=== PATIENT | female | born 1990 | race Caucasian/White ===

== ENCOUNTER 2024-01-03 12:05 | Emergency (ER) | payer OTHER ==
[2024-01-03 12:45] VITALS: RESP 18; TEMP 98
--- NOTE | 2024-01-03 12:49 | ED ---
Abdominal Pain HPI - General Source: patient, RN notes reviewed Mode of arrival: ambulatory Limitations: no limitations - History of Present Illness MD Complaint: abdominal pain <Emily Penny - Last Filed: 01/03/24 12:47> <Joaquin Rivera - Last Filed: 01/03/24 19:21> - General Chief Complaint: Abdominal Pain Stated Complaint: abd pain Time Seen by Provider: 01/03/24 12:36 - History of Present Illness Initial Comments: Quick Note: This is a 33-year-old female who presents to the emergency department for abdominal pain. States that this is in the lower abdomen and not worse on any particular side. Symptoms started while at work today after lifting something up. Denies any nausea or vomiting. Reports a history of ruptured ovarian cysts and states that symptoms feel the same. She has minor vaginal bleeding. (Emily Penny) Dictation was produced using [employer] dictation software. please excuse any grammatical, word or spelling errors. Chief Complaint: 33-year-old female with history of ovarian cyst issues presents to the emergency department for pelvic pain History of Present Illness: Patient 33-year-old female presents emergency department pelvic pain. She has what she reports is extensive pelvic history after having had issues with oral ovaries requiring surgical intervention. Patient states that today she started to have lower abdominal pain. She states that there was some bleeding noted vaginally. Patient denies she is not sexually active. Denies any fever, chills or night sweats. Patient states the pain is midline suprapubic very low. Denies any other surgeries. The ROS documented in this emergency department record has been reviewed and confirmed by me. Those systems with pertinent positive or negative responses have been documented in the HPI. All other systems are other negative and/or noncontributory. (Joaquin Rivera) - Related Data Home Medications Medication Instructions Recorded Confirmed No Known Home Medications 01/03/24 01/03/24 Allergies Allergy/AdvReac Type Severity Reaction Status Date / Time No Known Allergies Allergy Verified 01/03/24 18:16 Review of Systems ROS Other: All systems not noted in ROS Statement are negative. <Emily Penny - Last Filed: 01/03/24 12:47> ROS Other: All systems not noted in ROS Statement are negative. <Joaquin Rivera - Last Filed: 01/03/24 19:21> ROS Statement: Those systems with pertinent positive or pertinent negative responses have been documented in the HPI. Past Medical History Past Medical History: No Reported History History of Any Multi-Drug Resistant Organisms: None Reported Additional Past Surgical History / Comment(s): ovarian cyst removal. Past Psychological History: No Psychological Hx Reported Smoking Status: Vaper Past Alcohol Use History: Rare Past Drug Use History: None Reported <Emily Penny - Last Filed: 01/03/24 12:47> General Exam Limitations: no limitations <Emily Penny - Last Filed: 01/03/24 12:47> <Joaquin Rivera - Last Filed: 01/03/24 19:21> - General Exam Comments Initial Comments: Visual Physical Exam Vital signs reviewed General: Well-appearing, nontoxic, no acute distress. Head: Normocephalic, atraumatic Eyes: PERRLA, EOMI ENT: Airway patent Chest: Nonlabored breathing Skin: No visual rash, normal skin tone Neuro: Alert and oriented 3 Musculoskeletal: No gross abnormalities (Emily Penny) PHYSICAL EXAM: General Impression: Alert and oriented x3, not in acute distress HEENT: Normocephalic atraumatic, extra-ocular movements intact, pupils equal and reactive to light bilaterally, mucous membranes moist. Cardiovascular: Heart regular rate and rhythm Chest: Able to complete full sentences, no retractions, no tachypnea Abdomen: abdomen soft, n tenderness to the suprapubic space, no palpatory tenderness to McBurney's point, no left lower quadrant tenderness r, non- distended, no organomegaly Musculoskeletal: Pulses present and equal in all extremities, no peripheral edema Motor: no focal deficits noted Neurological: CN II-XII grossly intact, no focal motor or sensory deficits noted Skin: Intact with no visualized rashes Psych: Normal affect and mood (Joaquin Rivera) Course Vital Signs 01/03/24 01/03/24 12:13 18:15 Temperature 98 F Pulse Rate 88 72 Respiratory 18 18 Rate Blood Pressure 116/74 111/76 O2 Sat by Pulse 98 98 Oximetry Medical Decision Making <Emily Penny - Last Filed: 04/26/24 12:47> - Lab Data Result diagrams: 01/03/24 14:05 01/03/24 14:05 <NicoleJoaquin D - Last Filed: 01/03/24 19:21> - Medical Decision Making I performed the QuickNote portion of this chart. Signed Emily Penny PA-C. (Emily Penny) Was pt. sent in by a medical professional or institution ([facility]URA Aguilar, [facility], urgent care, hospital, or [place] health care facility...) When possible be specific @ -No Did you speak to anyone other than the patient for history (EMS, parent, family, police, friend...)? What history was obtained from this source @ -No Did you review nursing and triage notes (agree or disagree)? Why? @ -I reviewed and agree with nursing and triage notes Were old charts reviewed (outside hosp., previous admission, EMS record, old EKG, old radiological studies, urgent care reports/EKG's, [place] health care facility records)? Report findings @ -No old charts were reviewed Differential Diagnosis (chest pain, altered mental status, abdominal pain women, abdominal pain men, vaginal bleeding, musculoskeletal, weakness, fever, dyspnea, syncope, headache, dizziness, GI bleed, back pain, seizure, CVA, palpatations, mental health)? @ -Not applicable EKG interpreted by me (3pts min.). @ -None done X-rays interpreted by me (1pt min.). @ -None done CT interpreted by me (1pt min.). @ -None done U/S interpreted by me (1pt. min.). @ -Ultrasound the pelvis shows good flow to bilateral ovaries What testing was considered but not performed or refused? (CT, X-rays, U/S, labs)? Why? @ -None What meds were considered but not given or refused? Why? @ -None Did you discuss the management of the patient with other professionals (professionals i.e. LAURA Aguilar, [facility], lab, RT, psych nurse, high school social science teacher, school age program teacher, teacher, disability liaison officer, corrections caseworker)? Give summary @ -No Was smoking cessation discussed for >3mins.? @ -No Was critical care preformed (if so, how long)? @ -No Were there social determinants of health that impacted care today? How? (Home lessness, low income, unemployed, alcoholism, drug addiction, transportation, low edu. Level, literacy, decrease access to med. care, intermediate, rehab)? @ -No Was there de-escalation of care discussed even if they declined (Discuss DNR or withdrawal of care, Hospice)? DNR status @ -No What co-morbidities impacted this encounter? (DM, HTN, Smoking, COPD, CAD, Cancer, CVA, ARF, Chemo, Hep., AIDS, mental health diagnosis, sleep apnea, morbid obesity)? @ -None Was patient admitted / discharged? Hospital course, mention meds given and route, prescriptions, significant lab abnormalities, going to OR and other pertinent info. @ -33-year-old female presents emergency department for pelvic pain. Vital signs upon arrival are within acceptable limits. Laboratory evaluation obtained. No leukocytosis. CBC metabolic panel is unremarkable. Urinalysis is negative. Transvaginal ultrasound shows fibroid otherwise no acute processes. Patient given analgesics discharge. Patient had just moved from [place]. Patient given referral to gynecology along with some of the local primary care physicians. Undiagnosed new problem with uncertain prognosis? @ -No Drug Therapy requiring intensive monitoring for toxicity (Heparin, Nitro, Insulin, Cardizem)? @ -No Were any procedures done? @ -No Diagnosis/symptom? Acute, or Chronic, or Acute on Chronic? Uncomplicated (without systemic symptoms) or Complicated (systemic symptoms)? @ -Pelvic pain Side effects of treatment? @ -No Exacerbation, Progression, or Severe Exacerbation? @ -No Poses a threat to life or bodily function? How? (Chest pain, [place], [place], pneumonia, PE, COPD, DKA, ARF, appy, cholecystitis, CVA, Diverticulitis, Homicidal, Suicidal, threat to staff... and all critical care pts) @ -No (Joaquin Rivera) - Lab Data Lab Results 01/03/24 01/03/24 01/03/24 Range/Units 12:16 14:05 14:05 WBC 6.1 (3.8-10.6) k/uL RBC 4.46 (3.80-5.40) m/uL Hgb 14.3 (11.4-16.0) gm/dL Hct 43.5 (34.0-46.0) % MCV 97.4 (80.0-100.0) fL MCH 32.0 (25.0-35.0) pg MCHC 32.9 (31.0-37.0) g/dL RDW 12.1 (11.5-15.5) % Plt Count 243 (150-450) k/uL MPV 7.2 Neutrophils % 59 % Lymphocytes % 33 % Monocytes % 5 % Eosinophils % 1 % Basophils % 1 % Neutrophils # 3.6 (1.3-7.7) k/uL Lymphocytes # 2.0 (1.0-4.8) k/uL Monocytes # 0.3 (0-1.0) k/uL Eosinophils # 0.1 (0-0.7) k/uL Basophils # 0.0 (0-0.2) k/uL Sodium 137 (137-145) mmol/L Potassium 3.9 (3.5-5.1) mmol/L Chloride 107 (98-107) mmol/L Carbon Dioxide 26 (22-30) mmol/L Anion Gap 4 mmol/L BUN 5 L (7-17) mg/dL Creatinine 0.63 (0.52-1.04) mg/dL Est GFR (CKD-EPI)AfAm >90 (>60 ml/min/1.73 sqM) Est GFR (CKD-EPI)NonAf >90 (>60 ml/min/1.73 sqM) Glucose 89 (74-99) mg/dL Calcium 9.1 (8.4-10.2) mg/dL Total Bilirubin 1.0 (0.2-1.3) mg/dL AST 20 (14-36) U/L ALT 13 (4-34) U/L Alkaline Phosphatase 49 (38-126) U/L Total Protein 5.3 L (6.3-8.2) g/dL Albumin 3.4 L (3.5-5.0) g/dL Amylase 37 (30-110) U/L Lipase 23 (23-300) U/L Urine Color Urine Appearance (Clear) Urine pH (5.0-8.0) Ur Specific [place] (1.001-1.035) Urine Protein (Negative) Urine Glucose (UA) (Negative) Urine Ketones (Negative) Urine Blood (Negative) Urine Nitrite (Negative) Urine Bilirubin (Negative) Urine Urobilinogen (<2.0) mg/dL Ur Leukocyte Esterase (Negative) Urine WBC (0-5) /hpf Ur Squamous Epith Cells (0-4) /hpf Urine Bacteria (None) /hpf Urine HCG, Qual Not Detected (Not Detectd) 01/03/24 Range/Units 14:39 WBC (3.8-10.6) k/uL RBC (3.80-5.40) m/uL Hgb (11.4-16.0) gm/dL Hct (34.0-46.0) % MCV (80.0-100.0) fL MCH (25.0-35.0) pg MCHC (31.0-37.0) g/dL RDW (11.5-15.5) % Plt Count (150-450) k/uL MPV Neutrophils % % Lymphocytes % % Monocytes % % Eosinophils % % Basophils % % Neutrophils # (1.3-7.7) k/uL Lymphocytes # (1.0-4.8) k/uL Monocytes # (0-1.0) k/uL Eosinophils # (0-0.7) k/uL Basophils # (0-0.2) k/uL Sodium (137-145) mmol/L Potassium (3.5-5.1) mmol/L Chloride (98-107) mmol/L Carbon Dioxide (22-30) mmol/L Anion Gap mmol/L BUN (7-17) mg/dL Creatinine (0.52-1.04) mg/dL Est GFR (CKD-EPI)AfAm (>60 ml/min/1.73 sqM) Est GFR (CKD-EPI)NonAf (>60 ml/min/1.73 sqM) Glucose (74-99) mg/dL Calcium (8.4-10.2) mg/dL Total Bilirubin (0.2-1.3) mg/dL AST (14-36) U/L ALT (4-34) U/L Alkaline Phosphatase (38-126) U/L Total Protein (6.3-8.2) g/dL Albumin (3.5-5.0) g/dL Amylase (30-110) U/L Lipase (23-300) U/L Urine Color Colorless Urine Appearance Clear (Clear) Urine pH 7.5 (5.0-8.0) Ur Specific [place] 1.009 (1.001-1.035) Urine Protein Negative (Negative) Urine Glucose (UA) Negative (Negative) Urine Ketones Negative (Negative) Urine Blood Negative (Negative) Urine Nitrite Negative (Negative) Urine Bilirubin Negative (Negative) Urine Urobilinogen <2.0 (<2.0) mg/dL Ur Leukocyte Esterase Trace H (Negative) Urine WBC 1 (0-5) /hpf Ur Squamous Epith Cells 4 (0-4) /hpf Urine Bacteria Rare H (None) /hpf Urine HCG, Qual (Not Detectd) Disposition <Emily Penny - Last Filed: 01/03/24 12:47> Is patient prescribed a controlled substance at d/c from ED?: No Time of Disposition: 18:30 <Joaquin Rivera - Last Filed: 01/03/24 19:21> Clinical Impression: Pelvic pain Disposition: HOME SELF-CARE Condition: Fair Instructions (If sedation given, give patient instructions): Pelvic Pain in Women (ED) Referrals: Alissa Calle DO [Doctor of Osteopathic Medicine] - 1-2 days Beau Kelly DO [REFERRING] - 1-2 days Marcell Barrientos MD [REFERRING] - 1-2 days
--- NOTE | 2024-01-03 13:35 | US ---
EXAMINATION TYPE: US transvaginal plus Dopplers DATE OF EXAM: 01/03/2024 COMPARISON: NONE CLINICAL INDICATION: Female, 33 years old with history of Pelvic pain; Pelvic pain today TECHNIQUE: Transvaginal. Color Doppler and spectral waveform analysis of the ovarian arteries and v eins. Date of LMP: 12/23/23 EXAM MEASUREMENTS: Uterus: 8.1 x 5.2 x 5.9 cm Endometrial Stripe: 1.1 cm Right Ovary: 3.8 x 2.0 x 1.7 cm Left Ovary: 2.5 x 2.8 x 1.5 cm 1. Uterus: Anteverted but retroflexed. Hypoechoic area along the right anterior lower uterine segm ent measuring 1.5 x 1.0 x 1.1cm (?fibroid) 2. Endometrium: wnl 3. Right Ovary: limited evaluation due to overlying bowel 4. Left Ovary: follicles noted Spectral, color and waveform doppler imaging shows good arterial and venous flow within the ovaries ; there is no evidence for ovarian torsion. 5. Bilateral Adnexa: prominent vascularity 6. Posterior cul-de-sac: small amount of free fluid IMPRESSION: 1. Anteverted but retroflexed uterus. Suspect a 1.5 cm intramural fibroid along the right anterior lo wer uterine segment. 2. Endometrial stripe thickness of 1.1 cm should correspond to the secretory phase of the menstrual c ycle. 3. Follicular change in the left ovary. Both ovaries are normal size. No sonographic evidence for ova bassam torsion. 4. Slightly prominent bilateral adnexal vascularity could be physiologic. It may also be seen in the setting of pelvic congestion syndrome. 5. Small amount of cul-de-sac free fluid likely physiologic.
[2024-01-03 14:10] LABS: Basophils % (A) 1 %; Eosinophils # (A) 0.1 k/uL (0-0.7); Eosinophils % (A) 1 %; HCT 43.5 % (34.0-46.0); HGB 14.3 gm/dL (11.4-16.0); Lymphocytes % (A) 33 %; MCHC 32.9 g/dL (31.0-37.0); MCV 97.4 fL (80.0-100.0); Mean Platelet Volume 7.2; Monocytes # (A) 0.3 k/uL (0-1.0); Monocytes % (A) 5 %; Neutrophils # (A) 3.6 k/uL (1.3-7.7); Neutrophils % (A) 59 %; Platelet Count 243 k/uL (150-450); RBC 4.46 m/uL (3.80-5.40); RDW 12.1 % (11.5-15.5); WBC 6.1 k/uL (3.8-10.6)
[2024-01-03 14:26] LABS: ALT 13 U/L (4-34); AST 20 U/L (14-36); African American GFR (CKD) >90 (>60 ml/min/1.73 sqM); Albumin 3.4 g/dL (3.5-5.0); Alkaline Phosphatase 49 U/L (38-126); Amylase 37 U/L (30-110); Anion Gap 4 mmol/L; Blood Urea Nitrogen 5 mg/dL (7-17); Calcium 9.1 mg/dL (8.4-10.2); Carbon Dioxide 26 mmol/L (22-30); Chloride 107 mmol/L (98-107); Glucose 89 mg/dL (74-99); Lipase 23 U/L (23-300); Non-African American GFR(CKD) >90 (>60 ml/min/1.73 sqM); Potassium 3.9 mmol/L (3.5-5.1); Sodium 137 mmol/L (137-145); Total Protein 5.3 g/dL (6.3-8.2)
[2024-01-03 15:15] LABS: Appearance,Urine Clear (Clear); Bacteria,Urine Rare /hpf; Bilirubin,Urine Negative (Negative); Blood,Urine Negative (Negative); Color,Urine Colorless; Glucose,Urine (UA) Negative (Negative); Ketones,Urine Negative (Negative); Leukocyte Esterase,Urine Trace (Negative); Nitrite,Urine Negative (Negative); PH, Urine 7.5 (5.0-8.0); Protein,Urine Negative (Negative); Specific Gravity,Urine 1.009 (1.001-1.035); Squamous Epithelial Cell,Urine 4 /hpf (0-4); Urobilinogen,Urine <2.0 mg/dL (<2.0); WBC,Urine 1 /hpf (0-5)
[2024-01-03] MEDS: MORPHINE SULFATE 4 MG/ML SYRINGE IM STA (18:31)
[2024-01-03] MEDS: ACET/COD 300 MG/30 MG STARTER PACK 6 TAB BTL PO STA (19:31)
[2024-01-03 19:37] VITALS: BP 116/78; PULSE 74
== END 2024-01-03 19:34 | disposition home or self-care (01) ==
LOC: EC 12:05
DX: R10.2 Pelvic and perineal pain (principal); F17.290 Nicotine dependence, other tobacco product, uncomplicated
CPT/HCPCS: 36415; 80053; 82150; 83690; 85025; 81001; 81025; 93975; 76830; 99284; 96372; J2270